=== PATIENT | male | born 1965 | race Caucasian/White ===

== ENCOUNTER 2020-01-01 14:59 | Emergency (ER) | payer BC, OTHER ==
[2020-01-01] MEDS ORDERED: IPRATROPIUM-ALBUTEROL 3 ML NEB INHALATION STA (15:46)
--- NOTE | 2020-01-01 15:46 | ED ---
Chest Pain HPI - General Chief Complaint: Chest Pain Stated Complaint: Chest pain/Fever/SOB/Cough Time Seen by Provider: 01/01/20 15:30 Source: patient, RN notes reviewed Mode of arrival: wheelchair Limitations: no limitations - History of Present Illness Initial Comments: This is a 54-year-old male with a history of hypertension who is a smoker no history of COPD or asthma who states he's had sharp intermittent chest pain radiating around from his back to us from shortness of breath. He has a cough of phlegm but is not sure colored is as he swallows it. His temperature of just below 102 that he sees broke today. He states she's feeling somewhat better he states his breathing now is about 75% of his usual. No complaints of chills sweats nausea vomiting loss of taste or smell no palpitations no exposure to any known infectious diseases. No other modifying factors at this time he does state he hasn't smoked much last couple days. The onset of symptoms about 3 days ago MD Complaint: chest pain, other - Related Data Home Medications Medication Instructions Recorded Confirmed Losartan Potassium [Cozaar] 50 mg PO HS 01/01/20 01/01/20 hydroCHLOROthiazide 25 mg PO HS 01/01/20 01/01/20 Previous Rx's Medication Instructions Recorded Albuterol Inhaler [Ventolin Hfa 2 puff INHALATION RT-QID PRN #1 01/01/20 Inhaler] puff Azithromycin [Zithromax Z-pack (6 250 mg PO DIRECTED 5 Days #6 tab 01/01/20 tabs)] Allergies Allergy/AdvReac Type Severity Reaction Status Date / Time No Known Allergies Allergy Verified 01/01/20 16:33 Review of Systems ROS Statement: Those systems with pertinent positive or pertinent negative responses have been documented in the HPI. ROS Other: All systems not noted in ROS Statement are negative. Past Medical History Past Medical History: Hypertension History of Any Multi-Drug Resistant Organisms: None Reported Past Surgical History: Hernia Repair Past Psychological History: No Psychological Hx Reported Smoking Status: Current every day smoker Past Alcohol Use History: Occasional Past Drug Use History: None Reported General Exam - General Exam Comments Initial Comments: This is a well-developed well-nourished awake alert oriented 3 male Limitations: no limitations General appearance: alert, in no apparent distress Head exam: Present: atraumatic, normocephalic, normal inspection Eye exam: Present: normal appearance, PERRL, EOMI. Absent: scleral icterus, conjunctival injection, periorbital swelling ENT exam: Present: normal exam, mucous membranes moist Neck exam: Present: normal inspection, full ROM, other (No stridor JVD or bruits). Absent: tenderness, meningismus, lymphadenopathy Respiratory exam: Present: decreased breath sounds. Absent: respiratory distress, wheezes, rales, rhonchi, stridor Cardiovascular Exam: Present: regular rate, normal rhythm, normal heart sounds. Absent: systolic murmur, diastolic murmur, rubs, gallop, clicks GI/Abdominal exam: Present: soft, normal bowel sounds. Absent: distended, tenderness, guarding, rebound, rigid Extremities exam: Present: normal inspection, full ROM, normal capillary refill. Absent: tenderness, pedal edema, joint swelling, calf tenderness Back exam: Present: normal inspection Neurological exam: Present: alert, oriented X3, CN II-XII intact Psychiatric exam: Present: normal affect, normal mood Skin exam: Present: warm, dry, intact, normal color. Absent: rash Course Vital Signs 01/01/20 01/01/20 01/01/20 15:04 17:01 17:09 Temperature 100.1 F H Pulse Rate 100 72 73 Respiratory 18 16 16 Rate Blood Pressure 152/88 O2 Sat by Pulse 99 Oximetry - Reevaluation(s) Reevaluation #1: 01/01/20 17:46 Patient did get some improvement in his breathing ability after the nebulizer treatment I did discuss the x-ray findings the patient he shows evidence of bilateral lower lobe pneumonia. Additionally however he does have elevated d- dimer and will receive a CT of the chest with angiography. This is pending at this time. Chest Pain MDM - MDM I did review the imaging and report is evidence of bilateral lower lobe infiltrates. Due to the complete report. Patient did get improvement after the nebulizer treatment. The presentation is consistent with bilateral lower lobe pneumonia and bronchospasm. Patient is much improved at this time he does meet criteria for discharge. We did discuss return parameters. Patient will be discharged with outpatient inhaler and antibiotics. He will follow-up with his personal physician and return if needed. Disposition Clinical Impression: Community acquired bilateral lower lobe pneumonia, Acute bronchospasm, Febrile illness, acute, Smoking Disposition: ADMITTED IP TO THIS [facility] Condition: Good Instructions (If sedation given, give patient instructions): Community Acquired Pneumonia (ED), Bronchospasm (ED), How to Stop Smoking (ED) Prescriptions: Albuterol Inhaler [Ventolin Hfa Inhaler] 2 puff INHALATION RT-QID PRN #1 puff PRN Reason: Dyspnea Azithromycin [Zithromax Z-pack (6 tabs)] 250 mg PO DIRECTED 5 Days #6 tab Is patient prescribed a controlled substance at d/c from ED?: No Referrals: Nonstaff,Physician [Primary Care Provider] - 1-2 days
[2020-01-01 16:30] LABS: Basophils # (A) 0.1 k/uL (0-0.2); Basophils % (A) 0 %; Eosinophils # (A) 0.3 k/uL (0-0.7); Eosinophils % (A) 2 %; HGB 13.8 gm/dL (13.0-17.5); Lymphocytes # (A) 1.6 k/uL (1.0-4.8); Lymphocytes % (A) 11 %; MCH 31.6 pg (25.0-35.0); MCHC 33.7 g/dL (31.0-37.0); MCV 93.6 fL (80.0-100.0); Monocytes % (A) 7 %; Neutrophils # (A) 11.7 k/uL (1.3-7.7); Neutrophils % (A) 79 %; Platelet Count 371 k/uL (150-450); RBC 4.38 m/uL (4.30-5.90); RDW 12.4 % (11.5-15.5); WBC 14.9 k/uL (3.8-10.6)
--- NOTE | 2020-01-01 16:39 | XR ---
EXAMINATION TYPE: XR chest 2V DATE OF EXAM: 01/01/2020 COMPARISON: 09/12/2015. HISTORY: Shortness of breath and cough. TECHNIQUE: Frontal and lateral views of the chest are obtained. FINDINGS: There are confluent opacities in the right mid and left lower lungs. There are small bilat eral pleural effusions, tracking along the minor fissure. No pneumothorax. The cardiac silhouette si ze is within normal limits. The osseous structures are intact. IMPRESSION: Bilateral confluent opacities with small pleural effusions, concerning for pneumonia.
[2020-01-01 16:45] LABS: ALT 12 U/L (4-49); AST 15 U/L (17-59); African American GFR (CKD) >90 (>60 ml/min/1.73 sqM); Alkaline Phosphatase 119 U/L (38-126); Anion Gap 9 mmol/L; Blood Urea Nitrogen 11 mg/dL (9-20); Calcium 9.3 mg/dL (8.4-10.2); Carbon Dioxide 26 mmol/L (22-30); Chloride 99 mmol/L (98-107); Creatine Kinase 27 U/L (55-170); Glucose 110 mg/dL (74-99); INR 0.9 (<1.2); LDH 332 U/L (313-618); Lipase 26 U/L (23-300); Magnesium 2.2 mg/dL (1.6-2.3); Non-African American GFR(CKD) >90 (>60 ml/min/1.73 sqM); Partial Thromboplastin Time 31.9 sec (22.0-30.0); Potassium 3.7 mmol/L (3.5-5.1); Prothrombin Time 9.7 sec (9.0-12.0); Sodium 134 mmol/L (137-145); Total Bilirubin 0.7 mg/dL (0.2-1.3); Total Protein 7.3 g/dL (6.3-8.2)
[2020-01-01 16:58] LABS: C Reactive Protein 179.7 mg/L (<10.0)
[2020-01-01 17:24] LABS: D-Dimer 2.23 mg/L FEU (<0.60)
[2020-01-01] MEDS ORDERED: cefTRIAXone IN SWFI 1,000 MG/10 ML SYRINGE IVP ONE ×2 (17:28→17:45)
[2020-01-01] MEDS ORDERED: AZITHROMYCIN 500 MG TAB PO STA (17:29)
--- NOTE | 2020-01-01 18:22 | CT ---
EXAMINATION TYPE: CT angio chest DATE OF EXAM: 01/01/2020 5:59 PM COMPARISON: CT 09/12/2015. Same-day radiograph. HISTORY: chest pain CT DLP: 337.4 mGycm Automated exposure control for dose reduction was used. CONTRAST: CTA scan of the thorax is performed with IV Contrast, patient injected with 100 mL of Isovue 370, pul monary embolism protocol. MIP images are created and reviewed. FINDINGS: LUNGS: There are moderate consolidations in the right middle and bilateral lower lobes with small cav itation in the left lower lobe. There are bilateral trace pleural effusions with adjacent atelectasis . No pneumothorax MEDIASTINUM: There is satisfactory enhancement of the pulmonary artery and its branches, there is no CT evidence for pulmonary embolism. There are no greater than 1 cm hilar or mediastinal lymph nodes. No pericardial effusion is seen. OTHER: No additional significant abnormality is seen. IMPRESSION: MULTIFOCAL PNEUMONIA WITH SMALL CAVITATION IN THE LEFT LOWER LOBE. FINDINGS ARE ATYPICAL OF COVID PNE UMONIA. OTHER ETIOLOGIES INCLUDING TB AND FUNGAL SHOULD BE CONSIDERED. NO EVIDENCE OF PE.
[2020-01-01 19:03] VITALS: RESP 18
[2020-01-01 19:12] VITALS: BP 119/74; PULSE 93; TEMP 100.2
[2020-01-02 00:04] LABS: Ferritin 258.9 ng/mL (22.0-322.0)
== END 2020-01-01 19:12 | disposition other institution (70) ==
LOC: EC 14:59
DX: J18.9 Pneumonia, unspecified organism (principal); J98.01 Acute bronchospasm; I10 Essential (primary) hypertension; F17.200 Nicotine dependence, unspecified, uncomplicated; Z79.899 Other long term (current) drug therapy; Z20.828 Contact with and (suspected) exposure to other viral communicable diseases
CPT/HCPCS: 94640; 93005; 85379; 80053; 82728; 82550; 83605; 83615; 83690; 83735; 84484; 85025; 85610; 85730; 86140; 87040; 87502; 84145; 87635; 71046; 71275; 99285; 96374; J0696; Q9967; 36415